=== PATIENT | female | born 1950 | race Caucasian/White ===

== ENCOUNTER 2019-08-23 10:15 | Outpatient (CLI) | payer MEDICARE, SELFPAY | END 2019-08-23 10:16 | disposition home or self-care (01) | PROVIDERS: PCP Family Medicine Adolescent Medicine; Referring Provider Otolaryngology; Visit Provider Otolaryngology | DX: H90.3 Sensorineural hearing loss, bilateral (principal) | CPT/HCPCS: 92557; 92567 ==

== ENCOUNTER 2020-02-20 09:51 | Outpatient (CLI) | payer MEDICARE, SELFPAY ==
--- NOTE | 2020-02-20 10:35 | ECG_ITS ---
Measurements Intervals [place] Rate: 77 P: -4 OK: 168 QRS: 24 QRSD: 98 T: 50 QT: 384 QTc: 435 Interpretive Statements SINUS RHYTHM BORDERLINE T WAVE ABNORMALITY- ANTERIOR LEADS BASELINE ARTIFACT- I, II, III, AVR, AVL, AVF BORDERLINE ECG Electronically Signed On 02-20-2020 10:56:09 CDT by Maverick Butterfield D.O.
[2020-02-20 11:04] LABS: Basophils Absolute Auto 0.1 K/mm3 (0.0-0.1); Basophils Percent Auto 0.7 % (0.2-1.2); Eosinophils Absolute Auto 0.4 K/mm3 (0-0.3); Eosinophils Percent Auto 3.7 % (0-4.4); Hematocrit 41.8 % (37.0-47.0); Hemoglobin 13.6 g/dL (12.0-15.0); Immature Granulocyte Absolute 0.03 K/mm3 (0.00-0.031); Immature Granulocyte Percent A 0.3 % (0-0.5); Lymphocytes Absolute Auto 3.15 K/mm3 (0.9-3.2); Lymphocytes Percent Auto 33.1 % (18.3-44.2); Mean Corpuscular HGB Conc 32.5 g/dl (32-36); Mean Corpuscular Hemoglobin 30.3 pg (26-34); Mean Corpuscular Volume 93.1 fl (80-100); Mean Platelet Volume 9.8 fl (7.4-10.4); Monocytes Absolute Auto 0.6 K/mm3 (0.1-0.6); Monocytes Percent Auto 6.2 % (2.6-8.5); Neutrophils Absolute Auto 5.3 K/mm3 (1.3-6.7); Platelet Count Result 266 k/mm3 (150-375); Red Blood Count 4.49 M/mm3 (4.2-5.4); Red Cell Distribution Width 13.3 % (11.5-14.5); White Blood Count 9.5 K/mm3 (4.5-10.0)
[2020-02-20 11:15] LABS: Anion Gap 9 mmol/L (8-16); Blood Urea Nitrogen 13 mg/dL (7-17); Calcium 9.9 mg/dL (8.4-10.2); Carbon Dioxide 32 mmol/L (22-30); Chloride 96 mmol/L (98-107); Estimated Glomerular Filt Rate 55; Glucose 95 mg/dL (65-105); Potassium 3.9 mmol/L (3.4-5.0); Sodium 137 mmol/L (137-145)
== END 2020-02-20 09:52 | disposition home or self-care (01) ==
LOC: ANHSURGERY 09:53
PROVIDERS: Anesthesiology; PCP Family Medicine Adolescent Medicine; Visit Provider Orthopaedic Surgery
DX: M12.811 Other specific arthropathies, not elsewhere classified, right shoulder (principal); E11.9 Type 2 diabetes mellitus without complications; Z01.812 Encounter for preprocedural laboratory examination; R94.31 Abnormal electrocardiogram [ECG] [EKG]
CPT/HCPCS: 36415; 80048; 85025; 87081; 93005

== ENCOUNTER 2020-02-20 12:43 | Outpatient (CLI) | payer MEDICARE, SELFPAY ==
--- NOTE | ~2020-02-20 | CT_ITS ---
EXAMINATION: CT shoulder RT wo con DATE: 02/20/2020 13:23 INDICATION: Right shoulder arthropathy. TECHNIQUE: High resolution computed tomography (CT) of the right shoulder was performed without intra venous contrast. Additional sagittal and coronal reconstructions were performed. Automated exposure c ontrol and iterative reconstruction technique were employed. The dose-length product was 518.44 mGy-c m. COMPARISON: Right shoulder radiographs dated 02/09/2020 FINDINGS: Alignment is normal. No fracture. There is widening of the acromioclavicular joint with likely change of prior distal clavicle resection. The acromion undersurface is convex in morphology (type IV) with thinning of the anterior acromion suggesting this is related to prior acromioplasty. There is chond rocalcinosis along the humeral head. Severe right glenohumeral osteoarthritis with mild remodeling wi th subchondral sclerosis and mild cystic change along the superomedial aspect of the humeral head as well as along the mid and posterior thirds of the glenoid. The latter results in mild loss of bone st ock and approximately 4 degree retroversion of the glenoid. There are small marginal osteophytes eric g the glenoid and large marginal osteophytes along the inferior aspect of the humeral head. There are several small osteochondral bodies within the deep subscapular recess as well as the fluid-filled lo ng head biceps tendon sheath below the level of the intertubercular groove. No asymmetric muscular at rophy of the rotator cuff or shoulder girdle. There are few tiny calcified nodules in the right lung consistent with old granulomatous disease. IMPRESSION: 1. Severe right glenohumeral osteoarthritis. Reviewed, dictated and finalized at location A.
== END 2020-02-20 12:44 | disposition home or self-care (01) ==
PROVIDERS: PCP Family Medicine Adolescent Medicine; Visit Provider Orthopaedic Surgery
DX: M19.011 Primary osteoarthritis, right shoulder (principal)
CPT/HCPCS: 36415; 73200; 80048; 85025; 87081; 93005

== ENCOUNTER 2020-03-19 01:50 | Outpatient (CLI) | payer MEDICARE, SELFPAY ==
[2020-03-19 17:02] LABS: SARS-CoV-2 RNA PCR Negative
== END 2020-03-19 01:51 | disposition home or self-care (01) ==
LOC: ANHCOVIDDT 01:50
PROVIDERS: PCP Family Medicine Adolescent Medicine; Visit Provider Orthopaedic Surgery
DX: Z01.812 Encounter for preprocedural laboratory examination (principal); Z20.828 Contact with and (suspected) exposure to other viral communicable diseases
CPT/HCPCS: 87635; C9803; U0003

== ENCOUNTER 2020-03-21 11:34 | Inpatient (IN) | payer MEDICARE, SELFPAY ==
[2020-02-20 10:34] VITALS: BP 128/72; PULSE 80; RESP 18; TEMP 36.8; O2SAT 95; BMI 29.5
--- NOTE | 2020-03-20 12:57 | WPDANESEPPF ---
Anes - Initial Pre Proc Eval Procedure: Operation Date: 03/21/20 07:30 Proposed Procedures p Right Reverse Total Shoulder Arthroplasty - Deejay Calabrese MD Date/Time: 03/20/20 12:57 Surgeon: Deejay Calabrese MD Pre Op Diagnosis: right shoulder rotator cuff arthropathy Patient Data Age: 69 Gender: F Height: 1.64 m Weight: 79.2 kg Last Vital Signs Temp 36.8 C 02/20/20 10:34 Pulse 80 02/20/20 10:34 Resp 18 02/20/20 10:34 BP 128/72 02/20/20 10:34 Pulse Ox 95 02/20/20 10:34 Allergies Allergy/AdvReac Type Severity Reaction Status Date / Time morphine AdvReac Unknown hypotension Verified 03/21/20 06:09 Home Medications Medication Instructions Recorded Confirmed Type aspirin 81 mg tablet,delayed 81 mg PO DAILY 02/09/20 03/21/20 History release atorvastatin 20 mg tablet 20 mg PO HS 02/09/20 03/21/20 History calcium polycarbophil 625 mg tablet 1,250 mg PO HS 02/09/20 03/21/20 History gabapentin 300 mg capsule 300 mg PO DAILY 02/09/20 03/21/20 History glimepiride 1 mg tablet 1 mg PO QAM 02/09/20 03/21/20 History hydrochlorothiazide 25 mg tablet 25 mg PO QAM 02/09/20 03/21/20 History metformin 500 mg tablet 500 mg PO TID 02/09/20 03/21/20 History nortriptyline 25 mg capsule 50 mg PO HS 02/09/20 03/21/20 History Patient hx anesthesia problems: none Family hx anesthesia problems: none PMFSH Past Medical History Medical History (Updated 03/20/20 @ 12:59 by Ravindra Ghosh MD) Arthritis Diabetes Hypercholesterolemia Overweight (BMI 25.0-29.9) Surgical History Surgical History (Updated 03/20/20 @ 12:59 by Ravindra Ghosh MD) History of cholecystectomy (~1963) History of rotator cuff surgery (~1999) History of rotator cuff surgery (~2000) History of surgery on right wrist (~2004) History of total left knee replacement (~2007) Hx of appendectomy Hx of hysterectomy Social History Social History Smoking status: Former smoker Tobacco type: cigarettes Additional smoking assessment comments: QUIT 1996 Alcohol intake: never Substance use: never Living arrangements: with family Spiritual care concerns: No Anes - Eval Final PreProcedure Day of Procedure 03/20/20 12:57 Patient weight: obese Heart: regular rate and rhythm Lungs: clear to auscultation and normal air movement Airway: Mallampati scale class II Neurological: alert and oriented Last oral intake: >/= 8 hours ASA classification: III Emergent: no Anesthetic plan: proceed Anesthesia type and monitoring: general ETT Informed Consent: The patient's anesthetic plan and its attendant risks and benefits were discussed with the patient/family/POA. Questions were solicited and answers provided to the satisfaction of the patient/family/POA.
[2020-03-21] VITALS (16 sets, daily range): BP systolic 89–120; BP diastolic 43–73; PULSE 72–106; RESP 14–20; TEMP 35.9–36.2; O2SAT 87–98
--- NOTE | ~2020-03-21 | XR_ITS ---
EXAMINATION: XR shoulder RT min 2V DATE: 03/21/2020 10:28 INDICATION: Status post right shoulder arthroplasty TECHNIQUE: AP transscapular Y views of the right shoulder were obtained. COMPARISON: CT dated 02/20/2020 FINDINGS: Interval placement of a reverse right total shoulder arthroplasty which is in near-anatomic alignment . No fracture. Expected postoperative gas in the surrounding soft tissues.Opacities in the left lower lung zone. IMPRESSION: 1. Right total shoulder arthroplasty negative for postoperative purposes. 2. Opacities in the left lower lung zone which could represent atelectasis and/or pneumonia. Consider dedicated PA and lateral chest radiographs. Reviewed, dictated and finalized at location A. IMPRESSION: 1. Right total shoulder arthroplasty negative for postoperative purposes. 2. Opacities in the left lower lung zone which could represent atelectasis and/ or pneumonia. Consider dedicated PA and lateral chest radiographs.
[2020-03-21] MEDS: LACTATED RINGERS 1,000 ML 30 ML IV CONT ×2 (06:30→10:16)
[2020-03-21 06:37] LABS: Glucose Point of Care 87 (65-105)
[2020-03-21] MEDS: KETOROLAC 15 MG/ML VIAL (*BKC) IV PUSH (06:44)
[2020-03-21] MEDS: ACETAMINOPHEN 500 MG TABLET 1000 MG PO (06:45)
[2020-03-21] MEDS: TRANEXAMIC ACID 1,000MG/ISO100 1,000 MG/100 ML BAG 200 MG IVPB (06:46)
--- NOTE | 2020-03-21 06:46 | WPDANESPNB ---
Anes - Peripheral Nerve Block Date/Time: 03/21/20 06:46 I have discussed with the patient/family/POA the placement of a peripheral nerve block for post-operative pain management, including associated risks, benefits, complications, and side effects. Alternative methods of post-operative analgesia were detailed. Questions were solicited and answers provided to the satisfaction of the patient/family/POA. Time-Out: A pre-procedural Time-Out was completed immediately before starting the procedure and confirmed: Patient Identification, Site, Procedure, Patient Position and the Availability of Requisite Equipment. Clinical Indications: Acute post-operative pain management requested by the operative surgeon. Nerve Block Insertion Note Anes-nerve block: posterior fossa sciatic (20cc) Patient position: supine Skin prep: chlorhexidine Needle: 22 gauge, stimulating, insulated echogenic needle. Needle length: 80 mm Technique: ultrasound (in plane) Injectate: bupivacaine 0.5% with epi 5 mcg/ml (20cc) Observations: tolerated well Complications: none Procedure start time:: 730 Procedure end time:: 735
--- NOTE | 2020-03-21 07:14 | WPDHPUPDATE1 ---
History and Physical Update Update Date/Time: 03/21/20 07:14 History and Physical has been reviewed, including an updated exam of the patient. There are NO changes in the patient's condition. Risks, benefits, and alternatives have been discussed and questions answered. Patient agrees to proceed with procedure.
[2020-03-21] MEDS: ceFAZolin 2 GM/D5W 50 ML 2 GM/50 ML BAG IVPB (07:38)
--- NOTE | 2020-03-21 10:14 | PM.PROC ---
Procedure Note - Detailed Date of procedure: 03/21/20 Pre-op diagnosis: right shoulder rotator cuff arthropathy Post-op diagnosis: same Procedure performed: Reverse total shoulder arthroplasty. Biceps tenodesis. Description of procedure: Severe glenohumeral degenerative changes with a very large osteophyte at the inferior humeral head. Mild posterior erosion was corrected according to the preoperative plan. Bone quality was good. The high- offset tray was placed at the 10:30 position. Excellent stability without impingement was confirmed. She had previous rotator cuff incision anterolateral. There was also a transverse incision crossing this incision over the distal clavicle, which was previously excised. The deltoid muscle remained intact a despite some depression of the subcutaneous tissues under the longitudinal incision. Implants: [employer], perform + reversed base plate,25mm Perform reversed glenoid sphere, size 36 Flex shoulder system reverse tray high offset. 6 mm polyethylene reversed insert. Ascend flex standard humeral stem size 2B Anesthesia: GETA and regional Surgeon: Deejay Calabrese MD Estimated blood loss (mL): 200 Drains: No Pathology: none sent Complications: None Condition: stable Disposition: PACU Findings: OPERATIVE DETAILS: The patient was given an interscalene block in the preoperative area. Preoperative antibiotics were given. The patient was transferred to the operating room and a general anesthetic was administered. The beach chair position was used at 45 degrees. All bony prominences were padded. The head was carefully stabilized on the McConnel char filter tank tender head. A sterile prep and drape was performed in the usual manner with ChloraPrep. A longitudinal incision was created at the anterior shoulder just lateral to the deltopectoral interval. Careful dissection was performed to expose the interval and protect the cephalic vein. The vein was retracted medially. The upper border of the pectoralis was released. Anterior circumflex vessel branches were suture ligated. The biceps was tenotomized and later tenodesed. A subscapularis tenotomy was performed. The inferior capsule was released, exposing the humeral head. Osteophytes were removed. Care was taken to stay on bone to protect the axillary nerve. The anatomic head cut was taken with the oscillating saw. Sounding and broaching was performed. The neck anteversion and inclination were carefully assessed. The cut protector was placed, and attention was turned to the glenoid. Retractors were placed. Releases were carried out for exposure. The subscapularis was mobilized, the inferior capsule and long head of triceps released, and the superior and middle glenohumeral ligaments released as well. Labral tissue was resected as needed. The sizing template was used to assess the baseplate position low on the glenoid. A guide pin was placed. Minimal reaming was used to accomplish a flat surface without violating the subchondral bone. Version was corrected according to preoperative templating. The boss, and central screw were drilled. The real component was screwed into position. An anterior compression screw was placed. Supplemental locking screws were placed superiorly and inferiorly. The glenosphere was impacted into the taper, and secured with the locking screw. The humeral components were trialed. The real humeral stem and tray, and insert were impacted into position. The shoulder was copiously irrigated periodically with pulsatile lavage. The shoulder was reduced and stability confirmed. The biceps tenodesis was incorporated with the pectoralis tendon repair. The deltopectoral space was reapproximated with number 2 Vicryl. The remained tissue was closed with 0 Quill and 2-0 Quill running suture and steri-strips. A sterile dressing and shoulder immobilizer was placed. The patient was transferred to the recovery room. Hydrogen peroxide was placed on the subcutaneous tissues and then rin
[2020-03-21 10:24] LABS: Glucose Point of Care 155 (65-105)
--- NOTE | 2020-03-21 11:39 | ADMGEN ---
This patient, Pricila Altamirano, was admitted to [facility]. Patient/family oriented to hospital policies and general routines including ID bracelet, bed and alarms, visiting hours, pain management, procedures, bathroom and other care routines, personal items, smoking policy, room service/diet, and visiting hours. Valuables list has been completed. Information on how to activate the Rapid Response Team has been discussed. Patient/Family are encouraged to report perceived risks to care and to ask questions if they do not understand what they are told or what they should do.
[2020-03-21] MEDS: SODIUM CHLORIDE 0.9% IV 1,000 ML 125 ML IV CONT (12:20)
[2020-03-21] MEDS: DOCUSATE SODIUM 100 MG CAPSULE PO (16:53)
[2020-03-21] MEDS: MELOXICAM 7.5 MG TABLET PO (16:53)
[2020-03-21] MEDS: metFORMIN HCL 500 MG TABLET 1000 MG PO (16:53)
--- NOTE | 2020-03-21 19:25 | PM.IMHP ---
H&P: HPI History of Present Illness Date/Time: 03/21/20 19:25 Chief complaint: right shoulder rotator cuff arthropathy Narrative: Pricila Altamirano is a 69 year old female Who has had a right rotator cuff surgery previously 2 other times. Patient has been seen Dr. Calabrese and has been complaining of severe right shoulder pain. The patient underwent a reversed right shoulder cuff arthroplasty. See operative note. Patient also had a nerve block and is not having any discomfort at this time. Patient has a right arm in a sling and has no complaints at this time. The patient is left-handed dominant. She has had aching that is been intermittent and diffuse. She is having difficulty with daily activities. Pain with reaching and daily activities. Pain at rest and like blood. Date of consult 03/21/2020 Review of Systems Review of Systems: All systems reviewed & are unremarkable except as noted in HPI and below Constitutional: Constitutional: Reports as per HPI and Reports no additional constitutional complaints Eyes: Eyes: Reports as per HPI and Reports no additional eye complaints ENT: Reports system reviewed and no additional complaints, except as documented and Reports Normal hearing present Cardiovascular: Cardiovascular: Reports no additional cardiovascular complaints Respiratory: Respiratory: Reports no additional respiratory complaints and Reports no additional respiratory complaints Gastrointestinal: Gastrointestinal: Reports as per HPI and Reports no additional gastrointestinal complaints Musculoskeletal: Musculoskeletal: Reports no additional musculoskeletal complaints Integumentary/Breasts: Skin/Breast: Reports system reviewed and no additional complaints, except as docu and Reports as per HPI Neurologic: Reports system reviewed and no additional complaints, except as documented, Reports as per HPI and Reports Normal hearing present Psychiatric: Psychiatric: Reports no additional psychiatric complaints and Reports as per HPI Endocrine: Endocrine: Reports no additional endocrine complaints Hematologic/Lymphatic: Hematologic/Lymphatic: Reports no additional hematologic/lymphatic complaints Allergic/Immunologic: Allergic/Immunologic: Reports no additional allergic/immunologic complaints [facility] Past Medical History Medical History (Updated 03/21/20 @ 19:40 by Rosemary Craig NP) Arthritis Diabetes Hypercholesterolemia Hyperlipidemia Meniere disease Neuropathy Overweight (BMI 25.0-29.9) Surgical History Surgical History (Updated 03/21/20 @ 19:36 by Rosemary Craig NP) History of cholecystectomy (~1963) History of rotator cuff surgery (~1999) History of rotator cuff surgery (~2000) reverse right shoulder 03/21/20 History of surgery on right wrist (~2004) History of tonsillectomy History of total left knee replacement (~2007) Hx of appendectomy Hx of hysterectomy Family History Family History (Updated 03/21/20 @ 19:37 by Rosemary Craig NP) Mother Cancer Father Accidental Social History Social History Smoking packs per day: 0.5 Smoking cigarettes per day: 10.0 Years smoked: 10 Smoking pack-years: 5.00 Smoking status: Former smoker Tobacco type: cigarettes Additional smoking assessment comments: QUIT 1996 Alcohol intake: never Substance use: never Substance use type: does not use Living arrangements: with family Spiritual care concerns: No Meds Home Medications and Allergies Home Medications Medication Instructions Recorded Confirmed Type aspirin 81 mg tablet,delayed 81 mg PO DAILY 02/09/20 03/21/20 History release atorvastatin 20 mg tablet 20 mg PO HS 02/09/20 03/21/20 History gabapentin 300 mg capsule 300 mg PO BID 02/09/20 03/21/20 History glimepiride 1 mg tablet 1 mg PO QAM 02/09/20 03/21/20 History hydrochlorothiazide 25 mg tablet 25 mg PO QAM 02/09/20 03/21/20 History metformin
[2020-03-21] MEDS: ATORVASTATIN 20 MG TABLET PO (21:33)
[2020-03-21] MEDS: NORTRIPTYLINE HCL 25 MG CAPSULE 50 MG PO (21:37)
[2020-03-21 22:29] LABS: Glucose Point of Care 130 (65-105)
[2020-03-22] VITALS: BP 100/50; PULSE 86; RESP 18; TEMP 36; O2SAT 94
[2020-03-22 04:00] VITALS: BP 103/58; PULSE 95; RESP 18; TEMP 36.4; O2SAT 90
[2020-03-22 07:35] LABS: Glucose Point of Care 74 (65-105)
[2020-03-22 08:03] LABS: Anion Gap 11 mmol/L (8-16); Blood Urea Nitrogen 16 mg/dL (7-17); Carbon Dioxide 25 mmol/L (22-30); Chloride 95 mmol/L (98-107); Estimated CRCL calculation 58 ml/min; Estimated Glomerular Filt Rate > 60; Glucose 92 mg/dL (65-105); Magnesium 1.5 mg/dL (1.6-2.3); Sodium 131 mmol/L (137-145)
[2020-03-22 09:19] VITALS: BP 113/53; PULSE 88; RESP 16; TEMP 36.2; O2SAT 96
[2020-03-22] MEDS: GABAPENTIN 300 MG CAPSULE PO (09:24)
[2020-03-22] MEDS: hydroCHLOROthiazide 25 MG TABLET PO (09:24)
[2020-03-22] MEDS: DOCUSATE SODIUM 100 MG CAPSULE PO (09:24)
[2020-03-22] MEDS: MELOXICAM 7.5 MG TABLET PO (09:24)
[2020-03-22] MEDS: GLIMEPIRIDE 1 MG TABLET PO (09:24)
[2020-03-22] MEDS: ASPIRIN 81 MG ENTERIC TABLET PO (09:25)
[2020-03-22] MEDS: metFORMIN HCL 500 MG TABLET PO (09:28)
--- NOTE | 2020-03-22 09:39 | PM.IMPN ---
Progress Note: A&P Assessment and Plan (1) Aftercare following right shoulder joint replacement surgery: Code(s): Z47.1 - Aftercare following joint replacement surgery; Z96.611 - Presence of right artificial shoulder joint Status: Acute Assessment and Plan: POD 1 Reverse total shoulder arthroplasty and Biceps tenodesis per Dr. Calabrese. Patient doing well post - operatively. Post op care, pain management, PT/OT, DVT ppx per primary service Patient okay for discharge from Medical standpoint (2) Neuropathy: Code(s): G62.9 - Polyneuropathy, unspecified Status: Chronic Assessment and Plan: No acute issues. Patient has neuropathy to her lower extremities. Continue with home gabapentin and nortriptyline (3) Meniere disease: Code(s): H81.09 - Meniere's disease, unspecified ear Status: Chronic Assessment and Plan: No acute issues. BP a bit soft, but asymptomatic continue with hydrochlorothiazide. Instructed her to hold HCTZ if she becomes symptomatic/dizzy and to contact her PCP (4) Hyperlipidemia: Code(s): E78.5 - Hyperlipidemia, unspecified Status: Chronic Assessment and Plan: Continue with atorvastatin (5) Diabetes: Code(s): E11.9 - Type 2 diabetes mellitus without complications Status: Chronic Assessment and Plan: BGL well controlled Accuchecks ACHS, hypoglycemia protocol, correctional insulin, diabetic diet Continue home medications Additional Plan Thank you for allowing the Hospitalist team to care for this patient during their stay. We will sign off from a medical standpoint. Please call with any questions Subjective Date/time seen: 03/22/20 09:39 This is a Hospitalist Consult Progress Note Interval history: Patient is a 69 yo F with history of arthritis, DM, HLD, and Meniere disease who is here for planned reverse total shoulder arthroplasty and biceps tenodesis per Dr. Calabrese POD1; Hospitalist service consulted for medical management. Patient states she is doing well. Pain is only 3 or 4/10 and her block is wearing off and she is getting sensation back in her right arm/hand. No other complaints. Denies f/c/s, headaches, current dizziness, lightheadedness, acute changes in v/h (chronic right ear hearing loss), cp/palpitations, sob/cough, n/v/d/c, abd pain, changes in BMs, dysuria, hematuria, cloudy urine, calf pain/swelling. Review of Systems Review of Systems: All systems reviewed & are unremarkable except as noted in HPI and below Exam Narrative: Exam Narrative: General: Patient sitting upright in chair at time of visit in no acute distress. HEENT: Normocephalic, EOMI, oral mucosa moist. Cardiovascular: Rate and rhythm are regular. No notable murmur, rub, or gallop. Respiratory: Lungs clear to auscultation all [place]. Non-labored breathing. Abdomen: Soft, non-tender, non-distended, bowel sounds present. Extremities: Right arm in immobilizer; ice pack to right shoulder. NVI right arm. Peripheral pulses intact. No edema. Neuro: No focal neurological deficits. Speech is clear. Objective Data Vital Signs Vital Signs: Last Vital Signs Temp 97.5 F L 03/22/20 04:00 Pulse 95 03/22/20 04:00 Resp 18 03/22/20 04:00 BP 103/58 L 03/22/20 04:00 Pulse Ox 90 03/22/20 04:00 Intake/Output Intake/Output: Intake & Output 03/19/20 03/20/20 03/21/20 03/22/20 23:59 23:59 23:59 23:59 Intake Total 2802 950 Output Total 900 1450 Balance 1902 -500 Meds/Results Medications: Active Medications Generic Name Dose Route Start Last Admin Trade Name Freq PRN Reason Stop Dose Admin Aspirin 81 mg 03/22/20 09:00 03/22/20 09:25 Aspirin Ec PO 81 mg DAILY STEPHANIE Administration Atorvastatin Calcium
--- NOTE | 2020-03-22 11:05 | PC.NURSE ---
Per Dr. Calabrese, patient may be discharged without him seeing her today. Patient was seen by his PA this morning. Okay for discharge.
--- NOTE | 2020-04-10 17:10 | P.DS_ITS ---
DS: Admitting Diagnosis Admitting Diagnosis Admitting Diagnosis: right shoulder rotator cuff arthropathy DS: Discharge Diagnosis Discharge Diagnosis (1) Rotator cuff arthropathy of right shoulder: Code(s): M12.811 - Other specific arthropathies, not elsewhere classified, right shoulder Status: Acute DS: Summary Hospital Course Reason for hospitalization: Total shoulder arthroplasty. Hospital Course: Tolerated surgery well. Progressed appropriately with therapy. Status at Discharge Functional status at discharge: independent ambulation Overall status at discharge: patient is progressing back to baseline Time Spent with Patient Time attestation: Total time spent providing and/or coordinating discharge services: Exam Const: General: no acute distress Resp: Effort & Inspection: normal respiratory effort Skin: Other: Wound healing well. Mepilex dressing intact. No hematoma or drainage. Sling applied appropriately. Deltoid muscle fires. Axillary nerve sensation intact. 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 No edema. radial pulse palpable. Neuro: Motor exam (neuro): 5/5 motor strength present throughout Sensory Exam: normal sensation Psych: Mental Status: mental status grossly normal Speech and movement: Normal speech and movement present Discharge Plan Discharge Attending physician on discharge: Deejay Calabrese Consulting providers: Sy Lopez ; Rosemary Craig ; Missael Briscoe Discharging Clinician: Deejay Calabrese Patient Disposition: Home, Self-Care Activity: november shower Diet: as tolerated Wound Care Instructions: follow printed instructions Discharge Instructions: Discharge instructions per Hospitalist Sy Lopez PA-C: * Follow up with PCP and Orthopedic Surgeon per their instructions * If dizzy at home, find a safe place to sit and rest, hold your hydrochlorothiazide, check your blood pressure, and contact your PCP for further instructions Patient Instructions: Pain Management (DC), Shoulder Arthroplasty (DC), Shoulder Immobilizer (DC) Stand Alone Forms: General Discharge Information Follow-up/Referrals: Deejay Calabrese MD [Physician] - Discharge Medications: New oxycodone-acetaminophen 5-325 mg tablet 1 - 2 tablet PO Q4-6H MDD 6 tablets PRN (Reason: pain) Qty: 30 RF: 0 Continued metformin 500 mg tablet 500 mg PO TID RF: 0 glimepiride 1 mg tablet 1 mg PO QAM RF: 0 aspirin 81 mg tablet,delayed release (DR/EC) 81 mg PO DAILY RF: 0 gabapentin 300 mg capsule 300 mg PO BID RF: 0 nortriptyline 25 mg capsule 50 mg PO HS RF: 0 hydrochlorothiazide 25 mg tablet 25 mg PO QAM RF: 0 atorvastatin 20 mg tablet 20 mg PO HS RF: 0 vitamin B complex 1 cap PO DAILY RF: 0 Date of admission: 03/21/20 11:34 Primary Care Provider: Ry Bee Admitting Provider: Deejay Calabrese Discharge Date/Time: 03/22/20 11:36 Attending physician on admission: Deejay Calabrese Quality VTE Prophylaxis VTE prophylaxis: mechanical ordered
== END 2020-03-22 11:36 | disposition home or self-care (01) | DRG 483 ==
LOC: ANH2MED 11:40
PROVIDERS: Physician Assistant; Admitting Provider Orthopaedic Surgery; PCP Family Medicine Adolescent Medicine; Visit Provider Orthopaedic Surgery
PROC: 0RRJ00Z Replacement of Right Shoulder Joint with Reverse Ball and Socket Synthetic Substitute, Open Approach (ICD-10-PCS; CPT 23472; principal; 2020-03-21 07:30)
DX: M19.011 Primary osteoarthritis, right shoulder (principal); E11.42 Type 2 diabetes mellitus with diabetic polyneuropathy; E78.5 Hyperlipidemia, unspecified; Z96.652 Presence of left artificial knee joint; Z23 Encounter for immunization; Z90.49 Acquired absence of other specified parts of digestive tract; Z90.710 Acquired absence of both cervix and uterus; Z87.891 Personal history of nicotine dependence; E66.9 Obesity, unspecified; Z68.29 Body mass index [BMI] 29.0-29.9, adult
CPT/HCPCS: 36415; 73030; 80048; 83735; 86850; 86900; 86901; 87635; 90471; 90686; 97110; 97161; 97165; 97530; A4565; A9270; C1776; C9803; G0008; J0131; J0171; J0330; J0690; J1100; J1885; J2250; J2370; J2405; J2704; J2795; J3010; J7030; J7120; U0003

== ENCOUNTER → 2020-05-20 12:28 | Outpatient (CLI) | payer MEDICARE, SELFPAY ==
--- NOTE | ~2020-05-20 | MM_ITS ---
EXAMINATION: MM screening beena BI w ana laura HISTORY: Screening mammogram, family history of breast cancer in her sister. TECHNIQUE: Craniocaudal and mediolateral oblique 3-D tomosynthesis images were obtained and synthetic 2-D images were generated. CAD analysis was submitted and interpreted. COMPARISON: 03/14/2019, 01/27/2018, 01/21/2017 BREAST PARENCHYMAL COMPOSITION: There are scattered areas of fibroglandular density. FINDINGS: RIGHT BREAST: There is a possible small mass of the inner right breast best appreciated 3.8 cm from t he nipple on craniocaudal tomosynthesis image 35/59. LEFT BREAST: There is no evidence of suspicious mass, calcification, or architectural distortion to s uggest malignancy. There has been no significant interval change. IMPRESSION: 1. Possible right breast mass. 2. Additional mammographic views and possible breast ultrasound are recommended. BI-RADS Category 0: Incomplete: Needs additional imaging evaluation. Reviewed, dictated and finalized at location A. MER CHEMIST IMPRESSION: 1. Possible right breast mass. 2. Additional mammographic views and possible breast ultrasound are recommended . BI-RADS Category 0: Incomplete: Needs additional imaging evaluation.
== END ==
PROVIDERS: PCP Family Medicine Adolescent Medicine; Visit Provider Family Medicine Adolescent Medicine
DX: Z12.31 Encounter for screening mammogram for malignant neoplasm of breast (principal); R92.8 Other abnormal and inconclusive findings on diagnostic imaging of breast
CPT/HCPCS: 77063; 77067

== ENCOUNTER → 2020-06-11 09:41 | Outpatient (CLI) | payer MEDICARE, SELFPAY ==
--- NOTE | ~2020-06-11 | MM_ITS ---
EXAMINATION: MM diagnostic mammo unilat RT HISTORY: Possible small mass of inner right breast 3.8 cm from nipple reported on 05/30/2020 screenin g mammogram craniocaudal views TECHNIQUE: Full field ML and spot craniocaudal3-D Tomosynthesis images were performed and synthetic 2 -D images were generated. Rolled medial and rolled lateral craniocaudal views. CAD analysis was submi tted and interpreted. COMPARISON: 05/30/2020 bilateral digital screening mammogram FINDINGS: No reproducible mass is evident at the area of questioned mass in the inner right breast on craniocaudal projection. IMPRESSION: 1. No mammographic evidence of malignancy 2. Routine annual mammographic screening is recommended. BI-RADS Category 1: Negative Reviewed, dictated and finalized at location A. 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
== END ==
PROVIDERS: PCP Family Medicine Adolescent Medicine; Visit Provider Family Medicine Adolescent Medicine
DX: R92.8 Other abnormal and inconclusive findings on diagnostic imaging of breast (principal)
CPT/HCPCS: 77065

== ENCOUNTER 2020-10-22 09:58 | Outpatient (CLI) | payer MEDICARE, SELFPAY | END 2020-10-22 09:59 | disposition home or self-care (01) | LOC: ANHCOVIDVC 09:58 | PROVIDERS: PCP Family Medicine Adolescent Medicine | DX: Z23 Encounter for immunization (principal) | CPT/HCPCS: 0001A; 91300 ==

== ENCOUNTER 2020-11-12 10:00 | Outpatient (CLI) | payer MEDICARE, SELFPAY | END 2020-11-12 10:01 | disposition home or self-care (01) | LOC: ANHCOVIDVC 10:00 | PROVIDERS: PCP Family Medicine Adolescent Medicine | DX: Z23 Encounter for immunization (principal) | CPT/HCPCS: 0002A; 91300 ==

== ENCOUNTER → 2021-08-22 11:23 | Outpatient (CLI) | payer MEDICARE, SELFPAY ==
--- NOTE | ~2021-08-22 | MM_ITS ---
EXAMINATION: MM screening beena BI w ana laura HISTORY: Screening mammogram, family history of breast cancer in her sister. TECHNIQUE: Craniocaudal and mediolateral oblique 3-D tomosynthesis images were obtained and synthetic 2-D images were generated. CAD analysis was submitted and interpreted. COMPARISON: 06/11/2020, 05/20/2020, 03/14/2019 BREAST PARENCHYMAL COMPOSITION: There are scattered areas of fibroglandular density. FINDINGS: There is no evidence of suspicious mass, calcification, or architectural distortion to sugg est malignancy in either breast. There has been no suspicious interval change. IMPRESSION: 1. No mammographic evidence of malignancy. 2. Recommend routine screening mammography in one year. BI-RADS Category 1: Negative Reviewed, dictated and finalized at location A. 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
== END ==
PROVIDERS: PCP Family Medicine Adolescent Medicine; Visit Provider Family Medicine Adolescent Medicine
DX: Z12.31 Encounter for screening mammogram for malignant neoplasm of breast (principal)
CPT/HCPCS: 77063; 77067

== ENCOUNTER → 2022-10-23 13:49 | Outpatient (CLI) | payer MEDICARE, SELFPAY ==
--- NOTE | ~2022-10-23 | MM_ITS ---
EXAMINATION: MM screening beena BI w ana laura HISTORY: Screening mammogram TECHNIQUE: Craniocaudal and mediolateral oblique 3-D tomosynthesis images were obtained and synthetic 2-D images were generated. CAD analysis was submitted and interpreted. COMPARISON: August 22, 2021, June 11, 2020, May 20, 2020 bilateral screening mammogram exami [place] BREAST PARENCHYMAL COMPOSITION: There are scattered areas of fibroglandular density. FINDINGS: There is a biopsy marker on the right; history of prior benign right breast biopsy. There i s no evidence of suspicious mass, calcification, or architectural distortion to suggest malignancy in either breast. There has been no suspicious interval change. IMPRESSION: 1. No mammographic evidence of malignancy. 2. Recommend routine screening mammography in one year. BI-RADS Category 1: Negative Reviewed, dictated and finalized at location A.
== END ==
PROVIDERS: PCP Family Medicine Adolescent Medicine; Visit Provider Family Medicine Adolescent Medicine
DX: Z12.31 Encounter for screening mammogram for malignant neoplasm of breast (principal)
CPT/HCPCS: 77063; 77067

== ENCOUNTER 2024-05-24 14:18 | Outpatient (CLI) | payer MEDICARE, SELFPAY ==
--- NOTE | ~2024-05-24 | MM_ITS ---
EXAMINATION: MM screening beena BI w ana laura HISTORY: Screening mammogram, family history of breast cancer in her sister. TECHNIQUE: Craniocaudal and mediolateral oblique 3-D tomosynthesis images were obtained and synthetic 2-D images were generated. CAD analysis was submitted and interpreted. COMPARISON: 10/23/2022, 08/22/2021, 06/11/2020 BREAST PARENCHYMAL COMPOSITION:Not Dense. There are scattered areas of fibroglandular density. FINDINGS: No suspicious mass, calcification, or architectural distortion are identified in either [place] ast to suggest malignancy. There has been no suspicious interval change. IMPRESSION: No mammographic evidence of malignancy. Recommend routine screening mammography in one year. BI-RADS Category 1: Negative Reviewed, dictated and finalized at location . 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
== END 2024-05-24 14:19 | disposition home or self-care (01) ==
LOC: MICIMG 14:19
PROVIDERS: PCP Family Medicine Adolescent Medicine; Visit Provider Family Medicine Adolescent Medicine
DX: Z12.31 Encounter for screening mammogram for malignant neoplasm of breast (principal)
CPT/HCPCS: 77063; 77067

== ENCOUNTER 2024-11-07 10:15 | Outpatient (CLI) | payer MEDICARE, SELFPAY ==
[2024-11-07 10:40] LABS: Hematocrit 37.5 % (37.0-47.0); Hemoglobin 11.9 g/dL (12.0-15.0)
--- NOTE | 2024-11-07 10:44 | ECG_ITS ---
Test Date: 2024-11-07 10:53:50 Measurements Intervals [place] Rate: 100 P: 23 WI: 193 QRS: 27 QRSD: 98 T: 49 QT: 347 QTc: 448 Interpretive Statements SINUS TACHYCARDIA INCOMPLETE RIGHT BUNDLE BRANCH BLOCK BASELINE ARTIFACT- I, II, III, AVR, AVL, AVF BORDERLINE ECG No previous ECG available for comparison Electronically Signed On 11-07-2024 10:57:00 CDT by Maverick Butterfield D.O.
[2024-11-07 11:01] LABS: Albumin Level 4.2 g/dL (3.5-5.1); Estimated Glomerular Filt Rate > 60; Glucose 99 mg/dL (65-110)
--- OUTSIDE RECORDS SUMMARY | 2024-11-07 11:27 | XMS_ITS | Clinical Summary ---
Author Organization [facility] Address [address] [facility], [place] [address] Phone Care Team Providers Care Instrument Technician Apprentice Name Role Phone Ry Bee MD Primary Care Provider + Sunil Crooks DPM Unavailable [phone] Allergies Active Allergy Reactions Criticality Noted Date Comments Morphine Palpitations 10/16/2016 Blood pressure dropped real low and was rushed to the hospital. Medications VENTOLIN HFA 108 (90 Base) MCG/ACT Aerosol Solution 08/13/2016 Active glimepiride (AMARYL) 1 MG Tablet 09/14/2016 Active lisinopril (PRINIVIL, ZESTRIL) 10 MG Tablet 07/26/2016 Active metFORMIN (GLUCOPHAGE) 500 MG Tablet 09/12/2016 Active Vit-Fe Fumarate-FA ( VITAMIN PO) Take by mouth daily. Active Aspirin 81 MG Tablet Take 81 mg by mouth daily. Active Active Problems Problem Noted Date Diagnosed Date Diabetic polyneuropathy asso ciated with type 2 diabetes mellitus 10/16/2016 Lumbar radiculopathy 10/16/2016 Family History Medical History Relation Name Comments Cancer Mother Relation Name Status Comments Father Mother Social History Tobacco Use Types Packs/Day Years Used Date Smoking Tobacco: Former Smokeless Tobacco: Former Quit: 10/16/1996 Tobacco Cessation:Counseling Given: No Alcohol Use Standard Drinks/Week Comments No 0 (1 standard drink = 0.6 oz pur e alcohol) Sexually Active Control Partners Comments Yes Comments No Sex and Gender Information Value Date Recorded Sex Assigned at Not on file Legal Sex Female 3:43 PM CDT Gender Identity Not on file Sexual Orientation Not on file Last Filed Vital Signs Vital Sign Reading Time Taken Comments Blood Pressure 126/68 10/29/2016 1:46 PM CDT Pulse 96 10/29/2016 1:46 PM CDT Temperature 35.4 C (95.8 F) 10/29/2016 1:46 PM CDT Respiratory Rate 16 10/29/2016 1:46 PM CDT Oxygen Saturation 98% 10/29/2016 1:46 PM CDT Inhaled Oxygen Concentration - - Weight 79.4 kg (175 lb) 10/29/2016 1:46 PM CDT Height 167.6 cm (5' 6 ) 10/29/2016 1:46 PM CDT Body Mass Index 28.25 10/29/2016 1:46 PM CDT Plan of Treatment Health Maintenance Due Date Last Done Comments DEXA Bone Density 1948 Diabetes: Eye Exam 1948 Diabetes: Foot Exam 1948 Diabetes: Hemoglobin A1c 1948 Hepatitis C Virus (HCV) Screening 1948 TdaP Immunization 1948 Diabetes: Nephropathy Screening 1966 Pneumococcal Immunization (5 0+ years) (1 of 2 - PCV) 10/27/1967 Colonoscopy 1993 Colorectal Cancer Screening 1993 Cologuard 1998 Immunochemical Fecal Occult Blood 1998 Zoster Immunization (1 of 2) 1998 Respiratory Syncytial Virus (RSV) Immunization (Adult) (1 - 1-dose 75+ series) 10/27/2023 Influenza Immunization (#1) 2024 SARS-COV-2 Immunization ( - 2023-25 season) 2024 Hepatitis B Immunization Aged Out No longer eligible based on patient's age to complete this topic Meningococcal Immunization (ACWY) Aged Out No longer eligible based on patient's age to complete this topic Rotavirus Immunization Aged Out No lo nger eligible based on patient's age to complete this topic Insurance MEDICARE C [employer] Care Teams Instrument Technician Apprentice Relationship Specialty Start Date End Date Ry Bee MD [address] [place] [address] PCP - General Family Medicine 10/13/16 Sunil Crooks DPM [address] [place] [address] Consulting Physician Podiatry 10/16/16
== END 2024-11-07 10:16 | disposition home or self-care (01) ==
PROVIDERS: PCP Family Medicine Adolescent Medicine; Visit Provider Orthopaedic Surgery
DX: M16.11 Unilateral primary osteoarthritis, right hip (principal); E11.42 Type 2 diabetes mellitus with diabetic polyneuropathy; E78.00 Pure hypercholesterolemia, unspecified; N18.31 Chronic kidney disease, stage 3a
CPT/HCPCS: 36415; 82040; 82565; 82947; 83036; 85014; 85018; 93005